=== PATIENT | male | born 1990 | race Caucasian/White ===

== ENCOUNTER 2025-04-23 11:40 | Day surgery (SDC) | payer BC, SELFPAY ==
--- NOTE | 2025-04-19 07:15 | P.HP_ITS ---
History of Present Illness *Admission Date: 04/23/25 *History of present illness: Mr. Ramon is a 34-year-old gentleman who is here for diagnostic colonoscopy. Over a month ago, he had an episode of bright red blood per rectum with a lot of blood in the toilet bowl. He did have a couple of more episodes of rectal bleeding over a 4-hour period. He has not had blood in his stool prior to this or since this. He reports no anorectal pain or abdominal pain. He has no external hemorrhoids or prolapse. The patient does report normal bowel movements but occasionally will have constipation or diarrhea. He reports no mucus with his bowel movements. He reports no weight loss or family history of colitis, Crohn's disease or colon cancer. He reports no NSAID use. The examination is deemed medically necessary for diagnostic colonoscopy. The patient has been seen, interviewed and examined prior to the procedure by both myself and the anesthesia provider. [facility] Disclaimer: The information contained in this section may have been updated after the patient was seen, as this information can be updated by other users. Surgical History History of oral surgery History of adenoidectomy [place] teeth extracted H/O right wrist surgery H/O left wrist surgery Family History Mother Colon polyps Other Diabetes Hypertension Stroke Social History (Updated 04/23/25 @ 12:52 by Nish Medrano CRNA) Smoking Status: Never smoker alcohol intake: current alcohol intake frequency: holidays/special occasions only substance use type: denies use current occupational status: employed Travel in the last 8 weeks?: Inside the [place] Have you lived/traveled outside US in past 30 days?: No Contact w/someone who lives/traveled outside US past 30 days?: No Exposure to someone with infectious disease in past 14 days?: No Do you have a fever (greater than 100.4 F or 38 C)?: No Have you tested positive for COVID-19?: No Exposed to someone with COVID-19 in past 14 days?: No Do you have a sore throat?: No Do you have a cough?: No Do you have any weakness?: No Do you have any diarrhea?: No Are you experiencing any unusual bleeding?: No Do you have any muscle aches/pain?: No Do you have any abdominal pain?: No Are you experiencing loss of taste or smell?: No Review of Systems Review of Systems Review of systems (narrative): Negative *Cardiovascular Comments: Negative *Gastrointestinal Comments: Negative *Genitourinary Comments: Negative *Musculoskeletal Comments: Negative *Neurologic Comments: Negative Meds Home Medications and Allergies Home Medications ?Medication ?Instructions ?Recorded ?Confirmed ?Type sodium,potassium,mag sulfates 17.5 See Rx Instructions PO .COMPLEX 04/13/25 Rx gram-3.13 gram-1.6 gram oral soln #354 mL (Suprep Bowel Prep Kit) New Prescriptions to Start Prescriptions: Allergies Allergy/AdvReac Type Severity Reaction Status Date / Time No Known Allergies Allergy Verified 04/23/25 11:51 Exam *Routine HEENT Exam Head: Present normocephalic Eye: Present EOMI and PERRL ENT: Present mucous membranes moist *Routine Neck Exam Neck: Present supple *Routine Respiratory Exam Respiratory: Present CTA bilaterally *Routine Cardiovascular Exam Cardiovascular: Present RRR *Routine Abdominal Exam Abdominal: Present soft and normoactive bowel sounds; Absent tenderness *Routine Rectal Exam Rectal:: deferred *Routine Genitalia Exam Genitalia:: deferred *Routine Extremities Exam Extremities: Absent cyanosis, clubbing or edema *Routine Skin Exam Skin: Present warm; Absent rash *Routine Neurological Exam Neurological: Present alert and oriented X3 Assessment and Plan *Assessment and plan (1) Bright red blood per rectum: Status: Acute Category: Medical Code(s): K62.5 - Hemorrhage of anus and rectum Plan A/P: 1. Bright red blood per rectum (new) is the preprocedural diagnosis. The patient will be anesthetized/sedated using MAC sedation. The patient has been seen and examined. Cardiac and lung assessment prior to the examination is stable. Proceed with planned diagnostic colonoscopy.
[2025-04-20 11:47] VITALS: BMI 31.1
--- NOTE | 2025-04-23 07:21 | HMH.PROCNOTE ---
[facility] Procedure Note Date: 04/23/25 Time: 13:34 Procedure Note:: Colonoscopy Procedure Report: Colonoscopy with monopolar ablation/coagulation of internal hemorrhoids Endoscopist: Del Guerin II, MD Referring physician: Derek Olsen MD, [id number] [id number], [place] [address] Date of Procedure: April 23, 2025 Equipment: Olympus [id number] adult colonoscope Sedation: MAC sedation Indication: Mr. Ramon is a 34-year-old gentleman who is here for diagnostic colonoscopy. Over a month ago, he had an episode of bright red blood per rectum with a lot of blood in the toilet bowl. He did have a couple of more episodes of rectal bleeding over a 4-hour period. He has not had blood in his stool prior to this or since this. He reports no anorectal pain or abdominal pain. He has no external hemorrhoids or prolapse. The patient does report normal bowel movements but occasionally will have constipation or diarrhea. His did state that he has more bowel frequency. He reports no mucus with his bowel movements. He reports no weight loss or family history of colitis, Crohn's disease or colon cancer. He does state that his mother had colonic polyps and his father recently had a colonoscopy and did have a colon polyp. He reports no NSAID use. The examination is deemed medically necessary for diagnostic colonoscopy. Procedure: Prior to the procedure, a history and physical exam was performed, and patient's medications and allergies were reviewed. The risks, benefits and alternatives of the sedation and procedure were discussed with the patient. All questions were answered and informed consent was obtained. The patient was brought to the procedure room. Patient identification and proposed procedure were verified by the physician and the nurse. The patient was placed in a left lateral decubitus position and the scope was passed under direct vision. Throughout the procedure, the patient's blood pressure, pulse, and oxygen saturations were monitored continuously. The colonoscopy was accomplished without difficulty. The patient tolerated the procedure well. Findings: On digital rectal examination there was normal rectal tone. There were no external hemorrhoids. The colonoscope was introduced through the anal canal to the rectum and advanced to the cecum. The ileocecal valve and appendiceal orifice were identified. The scope was advanced a short distance into the ileum which appeared grossly normal. The scope was then withdrawn into the colon. The cecum, ascending, transverse, descending, sigmoid and rectum were grossly normal. There were no mucosal abnormalities identified. Upon retroflexion within the rectum there were grade 1-2 internal hemorrhoids. The columns of hemorrhoids were ablated/coagulated using monopolar ablation/coagulation. The preparation was excellent throughout with [place] Preparation Score of 9. The cecal time was 12 minutes. Impression: 1. Normal colonoscopy with intubation of the terminal ileum 2. Grade 1-2 internal hemorrhoids status post monopolar ablation/coagulation Plan: I would encourage psyllium bulking fiber supplementation on a long-term daily maintenance basis.
[2025-04-23 11:51] VITALS: BP 137/81; PULSE 74; RESP 18; TEMP 36.2; O2SAT 97; BMI 31.1
[2025-04-23] MEDS: LACTATED RINGERS 1000ML 1,000 ML 50 ML IV (12:02)
--- NOTE | 2025-04-23 12:51 | EXP.ANES.CKL ---
[facility] Disclaimer: The information contained in this section may have been updated after the patient was seen, as this information can be updated by other users. Surgical History History of oral surgery History of adenoidectomy [place] teeth extracted H/O right wrist surgery H/O left wrist surgery Family History Mother Colon polyps Other Diabetes Hypertension Stroke Social History (Updated 04/12/25 @ 12:02 by Sobia Dozier MA) Smoking Status: Never smoker alcohol intake: current alcohol intake frequency: holidays/special occasions only substance use type: denies use current occupational status: employed Travel in the last 8 weeks?: Inside the [place] [facility] Anesthesia Checklist Patient Identification Patient Identification: Arm Band Structural Data Admitted From: Home Planned Operative Procedure/s: Colonoscopy Consent for Planned Operative Procedure(s) Verified: Yes Verified Documents: Surgical Consent and History and Physical NPO Status Verified Time NPO: 05:15 (finished prep) Additional verifications Anesthesia Reactions: No Airway Assessment Mallampati Score:: Class II C-Spine Mobility Assessed: Yes TMJ Mobility Assessed: Yes Dentition: Good Dentition Neurological Assessment Level of Consciousness: Awake, Alert and Appropriate Anesthesia Plan Anesthesia Risk discussed: Yes Anesthesia Plan: Verified ASA Class: II Anesthesia Type: MAC
[2025-04-23 13:38] VITALS: BP 120/71; PULSE 87; RESP 18; TEMP 36.3; O2SAT 99
[2025-04-23 13:53] VITALS: BP 128/75; PULSE 65; RESP 18; O2SAT 100
[2025-04-23 14:08] VITALS: BP 147/76; PULSE 70; RESP 18; TEMP 36.3; O2SAT 100
== END 2025-04-23 14:15 | disposition home or self-care (01) ==
PROVIDERS: PCP Internal Medicine; Visit Provider Internal Medicine Gastroenterology
PROC: 0DJD8ZZ Inspection of Lower Intestinal Tract, Via Natural or Artificial Opening Endoscopic (ICD-10-PCS; CPT 45378; principal; 2025-04-23 13:30)
DX: K64.1 Second degree hemorrhoids (principal); Z83.719 Family history of colon polyps, unspecified; K62.5 Hemorrhage of anus and rectum
CPT/HCPCS: 46930; J2003; J2704; J7120